=== PATIENT | male | born 1935 | race Caucasian/White ===

== ENCOUNTER 2016-09-21 14:14 | Emergency (ER) | payer MEDICARE, OTHER | END 2016-09-21 15:58 | disposition home or self-care (01) | LOC: FER 14:14 | DX: S68.117A Complete traumatic metacarpophalangeal amputation of left little finger, initial encounter (principal); Z23 Encounter for immunization; W29.8XXA Contact with other powered hand tools and household machinery, initial encounter; Y92.009 Unspecified place in unspecified non-institutional (private) residence as the place of occurrence of the external cause | CPT/HCPCS: 90471; 90715 ==

== ENCOUNTER → 2021-10-10 | Day surgery (SDC) | payer MEDICARE, OTHER ==
[~2021-10-10] VITALS: Ht 177.8 cm; Wt 79.5 kg
[~2021-10-10] MED LIST: CARDURA2 MG PO; FIBER PILL PO; MVI PO; PREDNISONE 10MG10 MG PO; PRINIVIL10 MG PO
[2021-10-10 08:47] LABS: HCT 35.2 % (42.0-52.0); HGB 11.2 g/dl (13.2-18.0); MCH 30.4 pg (25.0-31.0); MCHC 31.8 g/dL (32.0-36.0); MCV 95.4 fL (78.0-100.0); MPV 9.9 fL (6.0-9.5); RBC 3.69 M/uL (4.70-6.00); RDW 13.1 % (11.5-14.0); WBC 9.7 K/uL (4.0-10.5)
[2021-10-10 09:05] LABS: ALBUMIN 3.6 g/dL (3.4-5.0); BILIRUBIN - TOTAL 0.5 mg/dL (0.2-1.0); BUN/CREAT RATIO (CALC) 24.4 RATIO; CREATININE 1.35 mg/dL (0.67-1.17); GLOBULIN (CALCULATION) 4.1 g/dL; POTASSIUM 4.1 mmol/L (3.5-5.1); TOTAL PROTEIN 7.7 g/dL (6.4-8.2)
== END | disposition home or self-care (01) ==
LOC: FAS 07:49
PROVIDERS: Orthopaedic Surgery
DX: G56.03 Carpal tunnel syndrome, bilateral upper limbs (principal); M65.341 Trigger finger, right ring finger; M17.12 Unilateral primary osteoarthritis, left knee; N40.0 Benign prostatic hyperplasia without lower urinary tract symptoms; I10 Essential (primary) hypertension
CPT/HCPCS: 36415; 71045; 80053; 93005; J1100; J1885; J2405; J2704; J3010; J7120